=== PATIENT | male | born 1965 | race Caucasian/White ===

== ENCOUNTER 2018-04-09 07:17 | Emergency (ER) | payer OTHER ==
[2018-04-09 07:20] VITALS: BP 129/82
--- NOTE | 2018-04-09 07:25 | EDPHY ---
H & P Stated Complaint: cp this morning l 4th 5th digits numb Time Seen by Provider: 04/09/18 07:23 HPI/ROS: CHIEF COMPLAINT: Paresthesias left 4th and 5th fingers HISTORY OF PRESENT ILLNESS: The patient presents to the ED after he noticed paresthesias in his left 3rd and 4th fingers today. The patient reportedly felt a pop somewhere in his chest or shoulder. The patient reports he has recently started working out again. He was doing pull-ups and pushups yesterday. Past medical history is significant for atrial flutter status post ablation. The patient has no history of coronary artery disease. He has had no significant exertional chest pain. The patient takes no regular medications. The patient denies any acute complaints currently. REVIEW OF SYSTEMS: A comprehensive 10 point review of systems is otherwise negative aside from elements mentioned in the history of present illness. Source: Patient - Personal History Current Tetanus Diphtheria and Acellular Pertussis (TDAP): Unsure - Medical/Surgical History Hx Asthma: Yes Hx Chronic Respiratory Disease: No Hx Diabetes: No Hx Cardiac Disease: Yes Hx Renal Disease: No Hx Cirrhosis: No Hx Alcoholism: No Hx HIV/AIDS: No Hx Splenectomy or Spleen Trauma: No Other PMH: Aflutter. Tracheostomy, knee surgery - Social History Smoking Status: Never smoked - Physical Exam Exam: General Appearance: Alert, no distress Eyes: Pupils equal and round no pallor or injection ENT, Mouth: Mucous membranes moist Respiratory: There are no retractions, lungs are clear to auscultation Cardiovascular: Regular rate and rhythm Gastrointestinal: Abdomen is soft and nontender, no masses, bowel sounds normal Neurological: A&O, normal motor function, normal sensory exam, normal cranial nerves Skin: Warm and dry, no rashes Musculoskeletal: Neck is supple nontender Extremities: symmetrical, full range of motion Psychiatric: Patient is oriented X 3, there is no agitation Constitutional: Initial Vital Signs Temperature (C) 36.6 C 04/09/18 07:18 Heart Rate 69 04/09/18 07:18 Respiratory Rate 18 04/09/18 07:18 Blood Pressure 129/82 H 04/09/18 07:18 O2 Sat (%) 94 04/09/18 07:18 O2 Delivery Mode Room Air Allergies/Adverse Reactions: No Known Allergies Allergy (Verified 04/09/18 07:18) Home Medications: Medication Instructions Recorded NK [No Known Home Meds] 04/09/18 Medical Decision Making - Diagnostics EKG Interpretation: EKG: Complete interpretation has been separately recorded in the [employer] archive. Summary impression: Sinus rhythm, rate 56, no ST segment elevation or depression. Inferior Q-waves noted. I-STAT troponin: 0.02 ED Course/Re-evaluation: The patient presents to the ED after he developed some paresthesias in his left 4th and 5th fingers consistent with a ulnar nerve neurapraxia. The patient has had no history of exertional chest pain. He has no risk factors for coronary artery disease. The patient's EKG demonstrates no evidence of a recurrent arrhythmia. The patient's troponin is normal. The patient has been informed that this is likely a peripheral nerve issue. He is discharged home with customary aftercare instructions and return precautions. Differential Diagnosis: Differential diagnosis considered includes peripheral neuropathy, acute coronary syndrome, ulnar nerve entrapment Departure - Departure Disposition: Home, Routine, Self-Care Clinical Impression: Ulnar nerve impingement Condition: Good Instructions: Paresthesia (ED) Additional Instructions: 1. Please return to the ED immediately for any worsening chest pain or shortness of breath. 2. Your symptoms today appear to be most consistent with a irritation of your ulnar nerve. 3. Please follow up with Dr. Mackay as scheduled. Referrals: Nadege Mackay MD [Medical Doctor] - As per Instructions
--- NOTE | 2018-04-09 09:43 | CPEKG ---
Test Reason : OPEN Blood Pressure : / mmHG Vent. Rate : 056 BPM Atrial Rate : 056 BPM P-R Int : 141 ms QRS Dur : 101 ms QT Int : 464 ms P-R-T Axes : 055 -64 024 degrees QTc Int : 448 ms Sinus rhythm Atrial premature complex inferior/Anterior Q waves Confirmed by Scott Bazzi ([id number]) on 04/09/2018 9:43:02 AM Referred By: Confirmed By:Scott Bazzi
== END 2018-04-09 08:14 | disposition home or self-care (01) ==
DX: G56.22 Lesion of ulnar nerve, left upper limb (principal)
CPT/HCPCS: 84484-PO

== ENCOUNTER → 2018-08-31 | Day surgery (SDC) | payer OTHER ==
[~2018-08-31] MED LIST: ATROPINE SULFATE 1 MG/10 ML SYR IVP ONE; BENZOCAINE UNIT DOSE SPRAY HURRICAINE MM ONE; LIDOCAINE 2% 100 MG/5 ML SYR ONE; MIDAZOLAM 2 MG/2 ML VIAL IVP ONE; NS 500 ML IV ONE; PROPOFOL 200 MG/20 ML VIAL ONE; SUCCINYLCHOLINE CHLORIDE 200 MG/10 ML SYR IVP ONE; fentaNYL 100 MCG/2 ML INJ IVP ONE
[2018-08-31 16:32] LABS: INR 1.16 (0.83-1.16)
--- NOTE | 2018-08-31 16:50 | PDANEPAE ---
ANE History of Present Illness TRACIE/CV for a-fib/flutter s/p ablation in 2013 ANE Past Medical History - Cardiovascular History Hx Arrhythmias: Yes Cardiovascular History Comment: fib/flutter - Pulmonary History Hx Oxygen in Use at Home: No Hx Sleep Apnea: No - Endocrine History Hx Diabetes: No - Chronic Pain History Chronic Pain: Yes ANE Review of Systems Review of Systems: - Exercise capacity Exercise capacity: >=4 METS ANE Patient History - Allergies Allergies/Adverse Reactions: No Known Allergies Allergy (Verified 04/09/18 07:18) - Home Medications Home medications: home medication list seen and reviewed Home Medications: NK [No Known Home Meds] 04/09/18 [Last Taken Unknown] - NPO status NPO Status: no food or drink >8 hours - Anes Hx Anes Hx: no prior problems - Smoking Hx Smoking Status: Never smoked - Alcohol Use Alcohol Use: None - Family Anes Hx Family Anes Hx: none ANE Labs/Vital Signs - Labs Result Diagrams: 08/31/18 15:50 - Vital Signs Height: 187.96 cm Weight: 79.379 kg ANE Physical Exam - Airway Neck exam: FROM Mallampati Score: Class 1 - Pulmonary Pulmonary: no respiratory distress - Cardiovascular Cardiovascular: regular rate and rhythym - ASA Status ASA Status: II ANE Anesthesia Plan Anesthesia Plan: GA with mask
--- NOTE | 2018-08-31 16:58 | PDHPUP ---
History & Physical Update H&P update statement: This history and physical update is based on an assessment of the patient which was completed after admission or registration (within 24 hours), but prior to the surgery/procedure. H&P update: H&P reviewed & patient examined, no change in patient's condition since H&P completed
--- NOTE | 2018-08-31 17:58 | POSTANESTH ---
Post Anesthetic Evaluation Cardiovascular Status: Normal, Stable Respiratory Status: Normal, Stable Level of Consciousness/Mental Status: Can Participate in Eval Pain Control: Adequate, Prn Tx Ordered Nausea/Vomiting Control: Adequate, Prn Tx Ordered Complications Possibly Related to Anesthesia: None Noted
--- NOTE | 2018-08-31 18:01 | CPR ---
[f rep st] NONINVASIVE CARDIAC PROCEDURE REPORT DATE OF PROCEDURE: 08/31/2018 PROCEDURE PERFORMED: Transesophageal echocardiogram and cardioversion. INDICATION FOR PROCEDURE: Atrial flutter with symptoms of dizziness, lightheadedness, and shortness of breath. BRIEF SUMMARY: The patient is a pleasant 53-year-old gentleman with a known history of paroxysmal at rial fibrillation, status post atrial fibrillation ablation approximately [address] Missael Maynard at [facility]. He presented to [facility] office today after speaking with me with complaints of 1-week history of intermittent palpitations and sustained rapid irregular and intermit tent periods of regular heartbeat. At the time of my phone conversation with him earlier today, he w as going at 140 beats a minute with symptoms of dizziness, lightheadedness, and shortness of breath. In my office earlier today, he was found to be in atrial flutter with 2:1 block at 140 beats per min arvind. Repeat ECG demonstrates atrial fibrillation with rapid ventricular response. The patient is a CHADS2-VASc score of zero. He has been on no medications. In the setting of sympto matic rapid atrial fibrillation and atrial flutter, decision was made to pursue TRACIE guided cardiovers ion. He was started on Eliquis 5 mg p.o. b.i.d. His first dose was at approximately noon today. PROCEDURE: After informed consent was obtained for TRACIE cardioversion, as well as anesthesia, the pat ient was sedated with propofol. TRACIE probe was passed without incident. TRACIE probe was used to take i mages of the left atrial appendage in multiple angles. Color Doppler imaging was used as well. Imag ing of the left atrium was also obtained. There is no evidence of left atrial or left atrial appenda ge thrombus. Agitated saline contrast study was used to look at interventricular interatrial septum. There is no evidence of atrial septal defect. Please see TRACIE report for full details. TRACIE probe was removed without incident and patient underwent a single biphasic synchronized shock of 150 joules with zoroastrian of normal sinus rhythm. PLAN: 1. Patient will be discharged home on Eliquis 5 mg p.o. b.i.d. 2. He will also be discharged on metoprolol tartrate 25 mg p.o. b.i.d. 3. Patient will arrange for consultation with Dr. Gautam Goel for consideration of repeat atrial fibr illation ablation and atrial flutter ablation. /[id number]/MODL
--- NOTE | 2018-09-01 20:02 | CPEKG ---
Test Reason : OPEN Blood Pressure : / mmHG Vent. Rate : 077 BPM Atrial Rate : 077 BPM P-R Int : 157 ms QRS Dur : 104 ms QT Int : 403 ms P-R-T Axes : 077 -75 049 degrees QTc Int : 457 ms Sinus rhythm Right atrial enlargement Inferior infarct, old Probable anteroseptal infarct, old Confirmed by Gautam Goel ([id number]) on 09/01/2018 8:01:22 PM Referred By: Shawn Castrejon Confirmed By:Gautam Goel
== END ==
LOC: FCATH 15:44
PROVIDERS: ATTEND Internal Medicine Cardiovascular Disease
PROC: 5A2204Z Restoration of Cardiac Rhythm, Single (ICD-10-PCS; principal; 2018-08-31)
DX: I48.92 Unspecified atrial flutter (principal); R42 Dizziness and giddiness; R06.02 Shortness of breath
CPT/HCPCS: J0330; J2001; J2704

== ENCOUNTER 2018-10-19 06:56 | Observation (INO) | payer OTHER ==
[2018-10-19] MEDS ORDERED: NS 1,000 ML IV ONE (06:58)
[2018-10-19 07:27] LABS: PLATELET COUNT 326 10^3/uL (150-400)
[2018-10-19 07:37] LABS: INR 1.04 (0.83-1.16); PROTIME(PATIENT) 13.2 SEC (12.0-15.0)
[2018-10-19] MEDS ORDERED: ISOPROTERENOL HCL/D5W 0.2 MG/50 ML BAG IV ONE (07:47)
[2018-10-19] MEDS ORDERED: BUPIVACAINE 0.75% 10 ML SDV ONE (07:47)
[2018-10-19] MEDS ORDERED: HEPARIN 10,000 UNIT/10 ML MDV (1,000 UNIT/ML) ONE (07:47)
[2018-10-19] MEDS ORDERED: LIDOCAINE 1% 300 MG/30 ML SDV ONE (07:47)
--- NOTE | 2018-10-19 08:02 | PDGENHP ---
History & Physical Chief Complaint: palpitations Relevant Physical Exam: s1s2 rrr cta ao3 Cardiorespiratory Assessment: for afl ablation and ep study
[2018-10-19] MEDS ORDERED: fentaNYL 100 MCG/2 ML INJ IVP PRN (08:09)
[2018-10-19] MEDS ORDERED: ACETAMINOPHEN 500 MG TAB PO PRN (08:09)
[2018-10-19] MEDS ORDERED: oxyCODONE IR 5 MG TAB PO PRN (08:09)
[2018-10-19] MEDS ORDERED: ONDANSETRON 4 MG/2 ML VIAL IVP PRN (08:09)
[2018-10-19] MEDS ORDERED: ALBUTEROL 3 ML DEYVIAL IH PRN (08:09)
[2018-10-19] MEDS ORDERED: NALOXONE HCL 0.4 MG/ML INJ IVP PRN (08:09)
[2018-10-19] MEDS ORDERED: HYDROmorphONE/DILAUDID 1 MG/ML INJ IVP PRN (08:09)
--- NOTE | 2018-10-19 08:11 | PDANEPAE ---
ANE History of Present Illness EPS A-Flutter Ablation ANE Past Medical History - Cardiovascular History Hx Arrhythmias: Yes Cardiovascular History Comment: fib/flutter - Pulmonary History Hx Oxygen in Use at Home: No Hx Sleep Apnea: No - Endocrine History Hx Diabetes: No - Chronic Pain History Chronic Pain: Yes ANE Review of Systems Review of Systems: ANE Patient History - Allergies Allergies/Adverse Reactions: No Known Allergies Allergy (Verified 04/09/18 07:18) - Home Medications Home Medications: Apixaban [Eliquis] 5 mg PO BID 08/31/18 [Last Taken 10/11/18] Metoprolol Tartrate 25 mg PO BID 08/31/18 [Last Taken 10/11/18] Ascorbic Acid [Vitamin C 500 mg (*)] 500 - 1,000 mg PO DAILY 10/12/18 [Last Taken 10/18/18] Cholecalciferol Vit D3 [Vitamin D3 2000 units tab (OTC)] 2,000 units PO DAILY [Last Taken 10/18/18] Herbals/Supplements -Info Only 1 ea PO DAILY 10/12/18 [Last Taken 10/18/18] Multivitamins [Multivitamin (*)] 1 each PO DAILY 10/12/18 [Last Taken 10/18/18] - Smoking Hx Smoking Status: Never smoked ANE Labs/Vital Signs - Labs Result Diagrams: 10/19/18 07:10 10/19/18 07:10 - Vital Signs Height: 187.96 cm Weight: 79.379 kg ANE Physical Exam - Airway Neck exam: FROM Mallampati Score: Class 2 Mouth exam: normal dental/mouth exam - Pulmonary Pulmonary: clear to auscultation - Cardiovascular Cardiovascular: regular rate and rhythym - ASA Status ASA Status: II (Prior Trach) ANE Anesthesia Plan Anesthesia Plan: general endotracheal anesthesia
[2018-10-19] MEDS ORDERED: PROPOFOL 200 MG/20 ML VIAL ONE (08:34)
[2018-10-19] MEDS ORDERED: fentaNYL 100 MCG/2 ML INJ ONE (08:35)
[2018-10-19] MEDS ORDERED: ROCURONIUM 50 MG/5 ML VIAL ONE ×2 (08:36→09:34)
[2018-10-19] MEDS ORDERED: ONDANSETRON 4 MG/2 ML VIAL ONE (08:36)
[2018-10-19] MEDS ORDERED: DEXAMETHASONE 4 MG/ML VIAL ONE (08:36)
--- NOTE | 2018-10-19 09:08 | CPEKG ---
Test Reason : OPEN Blood Pressure : / mmHG Vent. Rate : 059 BPM Atrial Rate : 059 BPM P-R Int : 145 ms QRS Dur : 098 ms QT Int : 445 ms P-R-T Axes : 078 -73 043 degrees QTc Int : 441 ms Sinus rhythm Inferior infarct, old Anterior infarct, old Confirmed by Beto Bullock ([id number]) on 10/19/2018 9:08:06 AM Referred By: Gautam Goel Confirmed By:Beto Bullock
--- NOTE | 2018-10-19 11:04 | EPPROC ---
Electrophysiology Procedure Note: ELECTROPHYSIOLOGIC STUDY AND CATHETER MEDIATED ABLATION FOR SUBEUSTACHIAN ISTHMUS DEPENDENT COUNTERCLOCKWISE ATRIAL FLUTTER: INDICATION: Recurrent atrial flutter Prior ablation at [facility] PROCEDURES PERFORMED: 13535-79 EP evaluation with RA/RV/LA pace/record, with arrhythmia induction 16680-61 EP evaluation with RA/RV pace record, insert/reposition catheter, with arrhythmia induction 53422 SVT ablation 89781 3D mapping Fluoroscopy Catheters & Anesthesia: The patient arrived in the Electrophysiology Laboratory in the fasting state. The right clavicular region, right groin, and left groin area were prepped and draped in the usual sterile manner. Anesthesiologist Dr. Anne administered general anesthesia. Appropriate non-invasive blood pressure, pulse oximetry and end-tidal CO2 monitoring was established. All catheters were placed percutaneously using the modified Seldinger technique , and advanced into position under fluoroscopic guidance. One #7 Slovak deflectable octapolar electrode catheter was advanced to the His-bundle position via the left femoral vein (2mm spacing; except the proximal ring which was 25cm from the tip used for unipolar recordings). One #7 Slovak deflectable catheter with 10 pairs of electrodes was placed via the left femoral vein into the coronary sinus. One # 7 Slovak Halo catheter was inserted through the right femoral vein and was placed at the tricuspid annulus. Soundstar catheter was used to obtain anatomy of CT isthmus, the CT isthmus was short with a deep groove. Heparin was administered to keep ACT > 200 seconds. Programmed stimulation was performed from the right atrium, coronary sinus ( left atrium) and right ventricle. Parahisian pacing demonstrated all retrograde conduction over the AV node. On arrival to the Electrophysiology Laboratory the patient was in sinus rhythm. High resolution 3D (3 dimensional) Carto electroanatomical map of the sub- Eustachian isthmus and right atrium was obtained during pacing of the posterolateral coronary sinus. This showed an area of conduction in the mid CT isthmus. For ablation of typical atrial flutter, one #8.5 Slovak Mobi sheath was placed in the right atrium. A #8 Slovak deflectable quadrapolar electrode catheter ( 2mm-5mm-2mm spacing) with 3.5 mm irrigated tip electrode and location sensor for the [email or web address] mapping system was inserted in the long sheath and advanced to the right atrium. Radiofrequency applications were applied between the tricuspid annulus at 0630 oclock as seen in the [place] view and the inferior vena cava. First RF application achieved conduction block across the isthmus within 5 seconds. Further RF applications were delivered to the CT isthmus. Following ablation of the atrial flutter, programmed atrial stimulation was performed in the baseline state and during infusion of isoproterenol 4 mcg/min. No atrial arrhythmias were inducible post ablation. Post ablation, a high-resolution electroanatomical map of the sub-Eustachian isthmus was obtained during pacing of the posterolateral coronary sinus. This confirmed conduction block across the sub-Eustachian isthmus. Bidirectional block was also confirmed by pacing. The catheters were removed. Sheaths were removed in the EP lab after applying subcutaneous purse string suture. The patient was transferred to the cardiovascular holding area in stable condition. There were no apparent complications. CONCLUSIONS: 1. Cavotricuspid isthmus dependent counterclockwise atrial flutter. 2. Successful catheter mediated re-ablation of cavotricuspid isthmus achieving bi-directional conduction block across cavotricuspid isthmus. 3. No atrial arrhythmias inducible post ablation. 4. No apparent complications. Patient Problems: Problems Problem Status Onset Atrial flutter Acute
--- NOTE | 2018-10-19 11:21 | POSTANESTH ---
Post Anesthetic Evaluation Cardiovascular Status: Normal, Stable Respiratory Status: Normal, Stable Level of Consciousness/Mental Status: Can Participate in Eval, Mildly Sleepy, Arousable Pain Control: Adequate, Prn Tx Ordered Nausea/Vomiting Control: Adequate, Prn Tx Ordered Complications Possibly Related to Anesthesia: None Noted
--- NOTE | 2018-10-19 16:45 | CPEKG ---
Test Reason : OPEN Blood Pressure : / mmHG Vent. Rate : 073 BPM Atrial Rate : 073 BPM P-R Int : 148 ms QRS Dur : 093 ms QT Int : 424 ms P-R-T Axes : 075 -82 042 degrees QTc Int : 468 ms Sinus rhythm Inferior infarct, old Anteroseptal infarct, old Confirmed by Beto Bullock ([id number]) on 10/19/2018 4:45:04 PM Referred By: Gautam Goel Confirmed By:Beto Bullock
[2018-10-20 04:50] LABS: PLATELET COUNT 283 10^3/uL (150-400)
[2018-10-20 07:55] VITALS: BP 111/72
[2018-10-20] MEDS ORDERED: APIXABAN 5 MG TAB PO SCH (09:00)
--- NOTE | 2018-10-20 09:50 | GDS ---
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 DISCHARGE DIAGNOSIS: Atrial flutter, status post successful cavotricuspid isthmus re-ablation. PROCEDURES PERFORMED DURING HOSPITALIZATION: 1. Electrocardiogram. 2. Echocardiogram. 3. Electrophysiology study. 4. Cavotricuspid isthmus re-ablation for atrial flutter. HOSPITAL COURSE: Patient presented October 19, 2018, for an electrophysiology study and atrial flutter ablation in the setting of increasingly frequent and symptomatic recurrent episodes of atrial flutter following a prior atrial flutter ablation at [facility]. Patient underwent successful atrial flutter ablation with Dr. Gautam Goel without any intra-procedure complications. He has done very well in the postprocedure setting and is appropriate and stable for discharge home today. PHYSICAL EXAMINATION: GENERAL: Alert and oriented x4, in no apparent distress. VITAL SIGNS: Blood pressure 111/72, heart rate 66, respiratory rate 16, SpO2 96% on room air, temp 36.6 degrees Celsius. RESPIRATORY: Lungs are clear to auscultation without adventitious breath sounds. CARDIAC: Normal S1, S2. No S3, S4, or murmurs. Rhythm is regular. ABDOMEN: Normoactive bowel sounds times all 4 quadrants. No masses or tenderness. Soft to palpation. SKIN: [place], warm, dry without cyanosis, clubbing, or peripheral edema. EXTREMITIES: Bilateral pursestring sutures removed intact without evidence of hematoma, redness, oozing, swelling, or warmth. Pulses are 2+ bilaterally. No edema. LABORATORY STUDIES: Drawn today demonstrates stable CBC and BMP compared to preprocedure. Troponin is 0.139, please note the elevated troponin is to be expected in the postprocedure setting. PROCEDURES: Electrophysiology study and atrial flutter ablation as mentioned above. Preliminary review of echocardiogram this morning demonstrates stable left ventricular systolic function without any wall motion abnormalities or pericardial effusion. Electrocardiogram this morning demonstrates normal sinus rhythm without new p.r.n. interval, ST or T-wave abnormalities. DISCHARGE DISPOSITION: Patient will be discharged home in stable condition. He is under activities restrictions as below. DISCHARGE MEDICATIONS: Please see discharge medication reconciliation sheet for full details. Please note that patient's metoprolol has been discontinued and he will restart his Eliquis tomorrow, 10/21/2018, forty-eight hours post procedure. DISCHARGE INSTRUCTIONS: Post atrial flutter ablation instructions reviewed with patient in detail. 1. We discussed activity restrictions, including lifting no more than 10 pounds and avoidance of submerged bathing for 10 days. 2. He will get up and walk around every 45 45 minutes for 45 days. 3. We reviewed bleeding precautions, medication compliance, monitoring for signs and symptoms of infection, and monitoring for sustained arrhythmias. 4. Patient will have an extended ECG monitor prior to his upcoming followup visit. If there is no evidence of atrial fibrillation, we will consider discontinuing his Eliquis at that time. Patient verbalizes understanding regarding all discharge instructions without questions or concerns. He has a followup visit scheduled in 1 month and he will contact [facility] with any new or concerning symptoms prior to his upcoming visit. Time spent on discharge greater than 30 minutes. /[id number]/MODL MTDD
--- NOTE | 2018-10-20 10:24 | ASDISCHSUM ---
Discharge Information Plan Status:Home with No Needs Medically Cleared to Leave:10/20/2018 Discharge Date:10/20/2018 CM D/C Disposition:Home, Routine, Self-Care ADT D/C Disposition:Home, Routine, Self-Care Projected Discharge Date:10/20/2018 Transportation at D/C: Discharge Delay Reason: Follow-Up Date:10/20/2018 Discharge Slot: Final Diagnosis: Placement Information Patient Contact Information Contact Name:SAGAR Relationship: Address:[address] City:[place] Alternate Phone: [facility]/Zip Code:[place] [address] Email: Financial Information Financial Class:BCOP Primary Plan Desc:[employer] PLAN Primary Plan Number:[id number] Secondary Plan Desc: Secondary Plan Number: Assessment Information LACE LACE Length of stay for Answers: Less than 1 day current admission Acuity / Level of Answers: No Care: Did the patient have an inpatient admission? Comorbidities - select Answers: Opioid dependence all that apply / Chronic pain Other Notes: AFib # of Emergency department Answers: 0 visits in the last 6 months Score: 5 Date Signed: 10/20/2018 10:23 AM Electronically Signed By:Tashia Navas RN Intervention Information
--- NOTE | 2018-10-20 12:30 | CPEKG ---
Test Reason : OPEN Blood Pressure : / mmHG Vent. Rate : 059 BPM Atrial Rate : 060 BPM P-R Int : 143 ms QRS Dur : 098 ms QT Int : 428 ms P-R-T Axes : 077 -73 050 degrees QTc Int : 424 ms Sinus rhythm Inferior infarct, old Anteroseptal infarct, old Confirmed by Beto Bullock ([id number]) on 10/20/2018 12:30:47 PM Referred By: Gautam Goel Confirmed By:Beto Bullock
--- NOTE | 2018-10-20 13:43 | ECHO ---
[email or web address] [address] [address] Main: [phone] Echocardiography Examination Transthoracic Name: MARY LOU MAZA MR#: [id number] Study Date: 10/20/2018 Study Time: 08:03 AM Date of : 1965 Age: 53 year(s) Height: 188 cm (74 in.) Weight: 79.38 kg (175 lb.) BSA: 2.05 m2 Gender: Male Examination: Echo Contrast: Image Quality: Adequate Rhythm: Heart Rate: BP: 111 mmHg/72 mmHg Indication: F/U Post EP Study Procedure Staff Referring Physician: Auction Assistant: Berna Stoddard [facility] Reading Physician: Aric Merino MD Requesting Provider: Ordering Physician: Gautam Goel MD Indication: F/U Post EP Study Measurements Chambers AV/MV Label Value Normal Value Label Value Normal Value LVOTd 2.4 cm (1.9cm - 2.1cm) AV PGmax 6 mmHg LVDd, 2D 5.3 cm (4.2cm - 5.9cm) AV PGmean 3 mmHg LVDs, 2D 3.8 cm (2.1cm - 4cm) AV Vmax 1.26 m/s IVSd, 2D 0.9 cm (0.6cm - 1.1cm) YADIRA (VTI) 2.9 cm2 LVPWd, 2D 1 cm (0.6cm - 1cm) MV E Vmax 0.55 m/s LVEF, BP 58 % (55% - 70%) MV A Vmax 0.47 m/s LVEF, 2D 56 % (54% - 74%) MV E/A 1.17 LVOT PGmean 2 mmHg MV E/E' lateral 5 LVOT Vmean 0.63 m/s MV E/E' septal 5.8 (0.5 - 1.7) RVDd, 2D 2.8 cm (1.9cm - 3.8cm) MV DT 229 ms LA Volume, BP 66 ml (18ml - 58ml) MV E' septal 0.1 m/s LADs, 2D 3.1 cm (3cm - 4cm) MV PHT 0.07 s LAESV index, BP 32.2 ml/m2 MVA PHT 3.3 cm2 RA Area 18.7 cm2 MV E' lateral 0.11 m/s Additional Vessels MV E/E' mean 5.24 Label Value Normal Value MV PHT 66 ms AoAsc 3.1 cm MV E' mean 0.1 m/s AoRoot, 2D 3.2 cm (1.4cm - 2.6cm) TV/PV IVC 2.7 cm (1.2cm - 2.3cm) Label Value Normal Value Patient: MARY LOU MAZA Study Date: 10/20/2018 Page 1 of 3 08:03 AM RA Pressure 5 mmHg RVSP 23 mmHg TR Pmax 18 mmHg TR Vmax 2.12 m/s PV PGmax 2 mmHg PV Vmax, Caliper 0.72 m/s (0.6m/s - 0.9m/s) Conclusions Left Ventricle: Left ventricle is normal in size. The ejection fraction, measured by Simpsons method, is 58 %. There are no regional wall motion abnormalities. Mitral Valve: Mild mitral regurgitation. Aortic Valve: Trivial aortic regurgitation is present. Tricuspid Valve: Mild tricuspid regurgitation. Right Ventricular systolic pressure is measured at 23 mmHg. Pericardium: No pericardial effusion. Overall Conclusions: Compared to echo of 08/31/2018, today's echo is unchanged. Findings Left Ventricle: Left ventricle is normal in size. Normal global systolic left ventricular function. The ejection fraction, measured by Simpsons method, is 58 %. Left ventricle wall thickness is normal. There are no regional wall motion abnormalities. Left ventricular diastolic function parameters are normal. No LV hypertrophy. Right Ventricle: Normal size right ventricle. Right ventricular systolic function is normal. Left Atrium: The left atrium is normal in size. Right Atrium: The right atrium is normal in size. Mitral Valve: Mitral valve appears structurally normal. Mild mitral regurgitation. No mitral valve stenosis. Aortic Valve: Aortic leaflets are structurally normal. Trivial aortic regurgitation is present. There is no aortic stenosis. Tricuspid Valve: Tricuspid valve leaflets are structurally normal. Mild tricuspid regurgitation. No tricuspid valve stenosis. Right Ventricular systolic pressure is measured at 23 mmHg. Pulmonary artery pressure normal. Pulmonic Valve: Pulmonic leaflets are structurally normal. Trivial pulmonic valve regurgitation is present. Aorta: The aortic root size in 2D measures 3.2 cm. The ascending aorta measures 3.1 cm. Aorta Measurements Patient: MARY LOU MAZA Study Date: 10/20/2018 Page 2 of 3 08:03 AM AoRoot, 2D is 3.2 cm. Great Vessels: *Rouleaux flow noted in IVC. IVC: The inferior vena cava is dilated. Pericardium: No pericardial effusion. Exam Details Procedure Ordered: Echo Procedure Status: Routine study Image Quality: Adequate Facility Location: Cardiac Echo 1 (No Signature Object) Patient: MARY LOU MAZA Study Date: 10/20/2018 Page 3 of 3 08:03 AM [id number]
== END 2018-10-20 11:44 | disposition home or self-care (01) ==
LOC: FCATH 06:56 → F2N 10:41 → F2W 11:06
PROVIDERS: ADMIT Internal Medicine Cardiovascular Disease; ATTEND Internal Medicine Cardiovascular Disease
PROC: B2161ZZ Fluoroscopy of Right and Left Heart using Low Osmolar Contrast (ICD-10-PCS; principal; 2018-10-19)
PROC: 02563ZZ Destruction of Right Atrium, Percutaneous Approach (ICD-10-PCS; principal; 2018-10-19)
PROC: 02K83ZZ Map Conduction Mechanism, Percutaneous Approach (ICD-10-PCS; principal; 2018-10-19)
DX: I48.92 Unspecified atrial flutter (principal)
CPT/HCPCS: 93005; 93306; 93613; 93621; 93623; 93653; 93662; G0378; C1731; C1732; C1759; C1766; J1100; J1644; J2405; J2704; J3010

== ENCOUNTER → 2019-01-05 | Outpatient (CLI) | payer OTHER | LOC: FIMAGING 13:48 ==

== ENCOUNTER 2019-01-10 11:06 | Observation (INO) | payer OTHER | END 2019-01-11 10:34 | disposition home or self-care (01) | LOC: FCATH 11:06 → F2N 15:51 ==